=== PATIENT | female | born 1995 | race Caucasian/White ===

== ENCOUNTER 2018-06-10 06:34 | Emergency (ER) | payer BC, OTHER ==
[2018-06-10 07:21] VITALS: BP 126/75; PULSE 128; TEMP 101.6; BMI 18.6
[2018-06-10] MEDS ORDERED: ACETAMINOPHEN 650 MG/20.3 ML ORAL SOLUTION (CUPS) ONE (07:29)
[2018-06-10] MEDS ORDERED: ACETAMINOPHEN 650 MG/20.3 ML ORAL SOLUTION (CUPS) PO ONE (07:33)
--- NOTE | 2018-06-10 07:43 | PDOC ---
History of Present Illness - General Chief Complaint: Sore Throat Stated Complaint: PAIN TO NECK AREA Time Seen by Provider: 06/10/18 07:22 History Source: Patient Exam Limitations: Clinical Condition - History of Present Illness Initial Comments: 06/10/18 07:38 Patient with no significant past medical history present with complaint of 4 day history of sore throat, fever, nasal congestion, bilateral ear pressure and painful to swallow. Patient saw primary care 2 days ago for sore throat and prescribed Augmentin with patient has been taking for 2 days reported not feeling better so came to the emergency room. Patient also reported mild epigastric pain. No nausea or vomiting. Denies diarrhea. Patient took Tylenol last night for fever and nothing today for fever. Patient denies any other symptoms Timing/Duration: other (4 days) Past History - Past Medical History Allergies/Adverse Reactions: Allergies Allergy/AdvReac Type Severity Reaction Status Date / Time No Known Allergies Allergy Verified 01/14/14 07:50 Home Medications: Ambulatory Orders Amox-Clav 875-125 mg Tablet 1 tab PO DAILY 06/10/18 Lidocaine 2% Viscous Oral [Xylocaine 2% Viscous Oral -] 2 ml PO Q6H PRN #60 ml 06/10/18 COPD: No Lung CA: No - Surgical History Lung Surgery: No - Immunization History Immunization Up to Date: Yes - Suicide/Smoking/Psychosocial Hx Smoking Status: No Smoking History: Never smoked Have you smoked in the past 12 months: No Number of Cigarettes Smoked Daily: 0 Information on smoking cessation initiated: No Hx Alcohol Use: No Drug/Substance Use Hx: No Review of Systems - Review of Systems Able to Perform ROS?: Yes Is the patient limited Malian proficient: No Constitutional: Yes: See HPI, Chills, Fever HEENTM: Yes: Symptoms Reported, See HPI, Ear Pain (b/l ear pressure), Nose Congestion, Throat Pain, Difficulty Swallowing. No: Eye Pain, Blurred Vision, Tearing, Recent change in vision, Double Vision, Cataracts, Ocular Prothesis, Ear Discharge, Nose Pain, Tinnitus, Nose Bleeding, Hearing Loss, Throat Swelling , Mouth Pain, Dental Problems, Mouth Swelling, Other Respiratory: No: Symptoms reported, See HPI, Cough, Orthopnea, Shortness of Breath, SOB with Exertion, SOB at Rest, Stridor, Wheezing, Productive cough, Hemoptysis, Other Cardiac (ROS): No: Symptoms Reported, See HPI, Chest Pain, Edema, Irregular Heart Rate, Lightheadedness, Palpitations, Syncope, Chest Tightness, Other ABD/GI: Yes: Abdominal cramping (intermittent epigastric pain). No: Nausea, Vomiting All Other Systems: Reviewed and Negative *Physical Exam - Vital Signs Last Vital Signs Temp Pulse Resp BP Pulse Ox 101.6 F H 128 H 18 126/75 98 06/10/18 07:15 06/10/18 07:15 06/10/18 07:15 06/10/18 07:15 06/10/18 07:15 - Physical Exam Comments: 06/10/18 07:40 GENERAL: Well developed, well nourished. Awake and alert. No acute distress. HEENT: Moderate pharyngeal erythema with moderately enlarged bilateral erythematous tonsils. Moderate white exudate on bilateral tonsils. Normal external ear canal bilateral. Tympanic membrane normal bilaterally. Normocephalic, atraumatic. PERRLA, EOMI. No conjunctival pallor. Sclera are non- icteric. Moist mucous membranes. NECK: Supple. Full ROM. CARDIOVASCULAR: Regular rate and rhythm. No murmurs, rubs, or gallops. Distal pulses are 2+ and symmetric. PULMONARY: No evidence of respiratory distress. Lungs clear to auscultation bilaterally. No wheezing, rales or rhonchi. ABDOMINAL: Soft. Non-tender. Non-distended. No rebound or guarding. No organomegaly. Normoactive bowel sounds. MUSCULOSKELETAL Normal range of motion at all joints. SKIN: Warm and dry. Normal capillary refill. No rashes. No jaundice. NEUROLOGICAL: Alert, awake, appropriate. Gait is normal without ataxia. PSYCHIATRIC: Cooperative. Good eye contact. Appropriate mood General Appearance: Yes: Nourished, Appropriately Dressed. No: Apparent Distress Moderate Sedation - Procedure Monitoring Vital Signs: Procedure Monitoring Vital Signs Temperature 101.6 F H 06/10/18 07:15 Pulse Rate 128 H 06/10/18 07:15 Respiratory Rate 18 06/10/18 07:15 Blood Pressure 126/75 06/10/18 07:15 O2 Sat by Pulse Oximetry (%) 98 06/10/18 07:15 Medical Decision Making - Medical Decision Making 06/10/18 07:42 Patient with no significant past medical history present with complaint of 4 day history of sore throat, fever, nasal congestion, bilateral ear pressure and painful to swallow. Patient saw primary care 2 days ago for sore throat and prescribed Augmentin with patient has been taking for 2 days reported not feeling better so came to the emergency room. Patient also reported mild epigastric pain. No nausea or vomiting. Denies diarrhea. Exam significant for moderately enlarged erythematous tonsils bilaterally with white exudates. No evidence of peritonsillar abscess. Throat patent. Lungs clear to auscultation. Patient with fever of 102 2F. Rapid strep and rapid flu tests ordered. Tylenol 650 mg by mouth ordered for fever. will consider oral Decadron and IM toradol if pain persist. urine hcg ordered 06/10/18 09:10 Rapid strep and flu negative. Urine test positive. Patient with no abdominal complaints or pains. Patient will referred to [facility] SALES REPRESENTATIVE to follow-up with . Patient advised to continue previously prescribed Augmentin given throat erythema and enlarged tonsils. Patient given viscous lidocaine oral for throat pain. Patient referred to ENT for follow-up of enlarged tonsils and throat pain. *DC/Admit/Observation/Transfer Diagnosis at time of Disposition: Tonsillitis, test positive Pharyngitis Qualifiers: Pharyngitis/tonsillitis etiology: unspecified etiology Qualified Code(s): J02.9 - Acute pharyngitis, unspecified Fever Qualifiers: Fever type: unspecified Qualified Code(s): R50.9 - Fever, unspecified - Discharge Dispostion Disposition: HOME Condition at time of disposition: Stable Decision to Admit order: No - Prescriptions Prescriptions: Lidocaine 2% Viscous Oral [Xylocaine 2% Viscous Oral -] 2 ml PO Q6H PRN #60 ml PRN Reason: throat pain - Referrals Referrals: Mainor Reyes MD [Staff Physician] - Matthew Deutsch MD [Staff Physician] - - Patient Instructions Printed Discharge Instructions: DI for Pharyngitis/Tonsillopharyngitis -- Adult Additional Instructions: Take medications as prescribed. Continue with previously prescribed Augmentin antibiotics and finish it. Increase fluid intake. Alternate between Tylenol Motrin as needed for fever. Follow-up with referred [facility] REPRESENTATIVE for . Follow -up with referred ENT if symptoms persist for another 4 days. - Post Discharge Activity Forms/Work/School Notes: Back to School
== END 2018-06-10 09:16 | disposition home or self-care (01) ==
LOC: JER 06:34
DX: O26.891 Other specified pregnancy related conditions, first trimester (principal); J02.9 Acute pharyngitis, unspecified; Z3A.00 Weeks of gestation of pregnancy not specified
CPT/HCPCS: 84703; 87070; 87804; 87880; 99282-25